=== PATIENT | female | born 1970 | race Caucasian/White ===

== ENCOUNTER 2023-03-15 10:28 | Outpatient (AMB) | payer BC, SELFPAY ==
[2023-03-15 11:27] VITALS: BP 100/70; PULSE 66; TEMP 36.8; O2SAT 96; BMI 27.3
--- NOTE | 2023-03-15 11:27 | AM.OFFWIN_ITS ---
Intake Vital Signs 03/15/23 11:27 Height 5 ft 5 in Weight 164 lb BMI 27.3 BP 100/70 Blood Pressure Location Lt brachial Position Sitting Pulse 66 Pulse Source Pulse Oximeter Temp 98.2 F Temp Source Oral Pulse Oximetry (%) 96 Intake Visit Reasons: EP, right ear blockage Intake Note: Pt is here today c/o Rt ear blockage over a month: also c/o Rt shoulder pain no injury noted Patient Tobacco Use Status: Never used Tobacco Allergies nitrofurantoin [From Macrobid] Adverse Reaction (Verified 03/15/23 11:38) Hives Do you need a note to return to daycare/school/sports/work: No HPI HPI Comments History of Present Illness Details 52-year-old female who presents for ear blockage and shoulder pain. Patient's ears been blocked for about a month now she has completed a course of Augmentin without much relief denies fevers or chills. In addition she complains of right shoulder pain primary with lateral raise. Does not recall any inciting injury. [facility] Social History Patient Tobacco Use Status: Never used Tobacco Review of Systems ENT Details: Ear fullness Musc Details: Right shoulder pain Physical Exam Vital Signs: Last Vital Signs Temp 98.2 F 03/15/23 11:27 Pulse 66 03/15/23 11:27 BP 100/70 03/15/23 11:27 Pulse Ox 96 03/15/23 11:27 BMI result Body Mass Index 27.3 Const General: healthy appearing, comfortable, no acute distress and alert Orientation/consciousness: patient oriented x3 Limitations: no limitations HEENT Other: Bilateral ear effusion Head: Yes normal to inspection Ears: hearing grossly normal bilaterally Resp Effort & Inspection: normal respiratory effort and able to speak in complete sentences Cardio Rate: regular rate Skin General skin exam: no rashes or lesions noted Neuro General: patient oriented x3 Extrem Other: Positive Johnson sign no tenderness to palpation General: Yes normal to inspection Assessment & Plan Assessment & Plan (1) Shoulder impingement syndrome: Code(s): M75.40 - Impingement syndrome of unspecified shoulder Qualifiers: Laterality: right Qualified Code(s): M75.41 - Impingement syndrome of right shoulder (2) Middle ear effusion: Code(s): H65.90 - Unspecified nonsuppurative otitis media, unspecified ear Qualifiers: Laterality: bilateral Qualified Code(s): H65.93 - Unspecified nonsuppurative otitis media, bilateral Plan VSs. Exam was unremarkable slight effusion of the year no evidence of infectious etiology. Support patient's shoulder positive Johnson test suggests impingement. Recommend heat shoulder exercises and meloxicam use. Medications: New meloxicam 7.5 mg PO DAILY 14 tabs 0RF Coding Level of Care Code Est Pt Level 3 (67231) Diagnoses Impingement syndrome of right shoulder M75.41 Laterality: right Fluid level behind tympanic membrane of both ears H65.93 Laterality: bilateral
== END 2023-03-15 12:13 | disposition home or self-care (01) ==
PROVIDERS: Visit Provider Physician Assistant
DX: M75.41 Impingement syndrome of right shoulder (principal); H65.93 Unspecified nonsuppurative otitis media, bilateral
CPT/HCPCS: 99213

== ENCOUNTER 2024-01-18 17:34 | Emergency (ER) | payer BC, SELFPAY ==
--- NOTE | ~2024-01-18 | XR_ITS ---
EXAMINATION: XR CHEST 2 VIEW CLINICAL INFORMATION: Cough COMPARISON: None TECHNIQUE: PA and lateral views of the chest obtained. FINDINGS: The lungs are clear. There are no pleural effusions. The cardiomediastinal silhouette is normal. XR/XR chest 2V IMPRESSION: No acute cardiopulmonary disease. Electronically signed by: Raoul Ramirez MD 01/18/2024 07:01 PM EDT
[2024-01-18 18:16] VITALS: BP 120/75; PULSE 118; RESP 18; TEMP 37.1; O2SAT 97; BMI 26.2
[2024-01-18] MEDS: Acetaminophen 325 MG TABLET 650 MG PO (18:32)
--- NOTE | 2024-01-18 18:34 | ED_ITS ---
HPI - General Adult General Chief complaint: Upper Respiratory Symptoms Stated complaint: URI/cough Time Seen by Provider: 01/18/24 22:01 Source: patient, RN notes reviewed and old records reviewed Mode of arrival: ambulatory Limitations: no limitations History of Present Illness ED Provider: Gavi AUGUSTE narrative: 53-year-old female presents with cough for few weeks. She says that on Dec, she began to have consistent productive cough. She says that the cough is associated with throat pain. At this time she did not have fever or chills, also had ear pain. She was found to have an ear infection, was treated with amoxicillin, of which she finished her prescription. Her cough and throat pain resolved at this time. She says that over the past few days the cough has come back, and has been resistant to treatment with Delsum and Robitussin. She says that today the cough has become so bad that she feels like her throat is closing during coughing fits. She says that the sensation is painful, however she has no shortness of breath during episodes. She endorses feeling chills, has no other systemic symptoms, has not tested for COVID. She says she received her flu vaccine this past Friday. Onset (ago): week(s) Location: chest Radiation: non-radiation Severity: mild Quality: dull Pain Consistency: constant Relieving factors: none Exacerbating factors: none Associated symptoms: cough Treatments prior to arrival: none Related Data Home Medications ?Medication ?Instructions ?Recorded ?Confirmed desonide 0.05 % topical cream appl topical 03/15/23 levonorgestrel 21 mcg/24 hr (up to intrauterine 03/15/23 8 years) 52 mg intrauterine device (Mirena) multivitamin 1 tab PO DAILY 03/15/23 spironolactone 50 mg tablet 50 mg PO BID 03/15/23 Previous Rx's ?Medication ?Instructions ?Recorded meloxicam 7.5 mg tablet 7.5 mg PO DAILY #14 tabs 03/15/23 benzonatate 200 mg capsule 200 mg PO TID PRN cough #20 caps 01/18/24 codeine 10 mg-guaifenesin 200 mg/5 10 ml PO Q4-6H PRN cough #473 mL 01/18/24 mL oral liquid Allergies Allergy/AdvReac Type Severity Reaction Status Date / Time nitrofurantoin AdvReac Hives Verified 01/18/24 18:19 [From Macrobid] Review of Systems Constitutional: Constitutional: Reports as per HPI, Denies chills, Denies fatigue, Denies fever(s) and Denies headache(s) ENT: Denies headache(s) Cardiovascular: Cardiovascular: Denies chest pain and Denies dyspnea Respiratory: Respiratory: Denies change in phlegm color, Denies chest congestion, Reports cough, Denies hemoptysis, Reports excessive phlegm pro duction, Reports pain with cough and Denies dyspnea Gastrointestinal: Gastrointestinal: Denies abdominal pain, Denies constipation and Denies vomiting Genitourinary: Genitourinary: Denies dysuria Neurologic: Denies headache(s) and Denies focal weakness Endocrine: Endocrine: Denies fatigue [facility] Social History Social History Patient Tobacco Use Status: Never used Tobacco Advance Directives: No Advance Directives Information Provided: No Physical Exam ED Vital Signs: Vital Signs - 24 hr 01/18/24 21:48 01/18/24 22:09 01/18/24 22:55 Temperature 98.7 F 99 F Pulse Rate 104 H 92 Respiratory Rate 20 20 Blood Pressure 128/78 119/79 Pulse Oximetry 97 95 97 Oxygen Delivery Method Room Air Room Air Room Air 01/18/24 23:05 Temperature 99 F Pulse Rate 92 Respiratory Rate 20 Blood Pressure 119/79 Pulse Oximetry 97 Oxygen Delivery Method Room Air BMI result Body Mass Index 26.2 Const General: healthy appearing, comfortable, no acute distress, alert and awake Nutritional Appearance: well nourished Orientation/consciousness: patient oriented x3 HENMT Head: Yes normocephalic and Yes atraumatic Ears: external ears normal and TM's normal bilaterally Mouth: moist mucous membranes and other (Erythematous posterior oropharynx, no tonsillar hypertrophy. ) Throat: Yes posterior oropharynx normal Eyes Eyelids: Yes eyelids normal Conjunctivae: conjunctivae normal Sclerae: sclerae normal Corneas: corneas normal Pupils: Equal, round and reactive pupils present EOM: EOMs intact bilaterally Neck Neck: Yes full ROM Resp Effort & Inspection: normal respiratory effort, able to speak in complete sentences, no audible wheezes and not labored Auscultation: clear to auscultation bilaterally Cardio Rate: regular rate Rhythm: regular rhythm GI Inspection: No distended Palpation (GI): Soft to palpation, not firm, nontender, no guarding and not rigid Auscultation: normoactive bowel sounds Skin General skin exam: no rashes or lesions noted and elasticity normal Neuro General: patient oriented x3 Cranial nerves: Yes CN's II-XII intact bilaterally, Yes Equal, round and reactive pupils present and Yes Bilaterally intact EOM present Cognition (Neuro): normal cognition Extrem Other: Moving all extremities well without any obvious deformities Course Course Course Narrative: RME; Done by RADHA Vázquez. 53-year-old female presents to ED for cough since December 27 with headache, body aches, chills and sore throat. 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 Patient denies any chest pain. Patient denies any recent long travel recent surgery. Negative for any lower extremity swelling or pitting edema calf tenderness. Lungs are clear. Medications Administered Discontinued Medications Generic Name Dose Route Start Last Admin Trade Name Freq PRN Reason Stop Dose Admin Acetaminophen 650 mg 01/18/24 18:21 01/18/24 18:32 Acetaminophen 325 Mg Tablet PO 01/18/24 18:22 650 mg ONCE ONE Administration Medical Decision Making Medical Decision Making MDM Narrative: 53-year-old female presents for evaluation of cough, congestion, sore throat. Vital signs are stable, she was recently treated for an ear infection with antibiotics and she reports her ear pain has resolved. Physical exam is reassuring, lungs are clear to auscultation, chest x-ray shows no evidence of infiltrate or pleural effusions. Viral swabs test positive for COVID-19. The patient be treated symptomatically. Differential Diagnosis Differential Diagnoses: The differential diagnosis associated with the presentat ion includes Cough COVID-19 Upper respiratory infection Pneumonia CHF Lab Data Labs: Lab Results 01/18/24 Range/Units 18:32 Influenza Type A (PCR) NEGATIVE (Negative) Influenza Type B (PCR) NEGATIVE (Negative) RSV RNA Qual (PCR) NEGATIVE (Negative) SARS-CoV-2 RNA (RT-PCR) POSITIVE A (Negative) S. pyogenes GrpA MARI Negative (Negative) Discharge Plan Discharge Clinical Impression: COVID-19 Patient Disposition: Home, Self-Care Instructions: COVID-19 (Coronavirus Disease 2019) (ED) Additional Instructions: You tested positive for COVID-19. You may use the Tessalon Perles during the day for cough. Use the guaifenesin with codeine for severe cough. This will make you drowsy, do not drink alcohol or drive after taking it. Follow-up with your primary doctor Prescriptions: New benzonatate 200 mg capsule 200 mg PO TID PRN (Reason: cough) Qty: 20 0RF codeine-guaifenesin 10-200 mg/5 mL liquid 10 ml PO Q4-6H PRN (Reason: cough) Qty: 473 0RF No Action spironolactone 50 mg tablet 50 mg PO BID Mirena 21 mcg/24 hours (8 yrs) 52 mg intrauterine device intrauterine multivitamin Tablet 1 tab PO DAILY desonide 0.05 % cream topical meloxicam 7.5 mg tablet 7.5 mg PO DAILY Qty: 14 0RF Stand Alone Forms: Work/School Release Interventions: ED Discharge Assessment Last Done: 01/18/24 23:05 Discharge Date/Time: 01/18/24 23:07 Print Language: Kenyan
[2024-01-18 18:47] LABS: IDNOW Serial# 08D9AD1C; Strep A Nucleic Acid Negative (Negative)
--- OUTSIDE RECORDS SUMMARY | 2024-01-18 19:05 | XMS_ITS | Continuity of Care Document ---
Author Organization [facility] [place] [facility] [place] Address [address] [place] [address]- Care Team Providers Care Naphthalene Still Operator Name Role Phone Jarret SENA, Mellisa Mcclendon Primary Care Physician [phone] Encounter [facility] Date(s): 04/12/22 - 05/12/22 [facility] Adult [address] [place] [address]- Allergies, Adverse Reactions, Alerts Substance Reaction Severity Status Macrobid Active Immunizations Given and Recorded Vaccine Date Status Refusal Reason influenza virus vaccine, inactivated 02/08/21 Devan rded influenza virus vaccine, inactivated 1 04/06/19 Gi richard influenza virus vaccine, inactivated 2 04/01/18 Gi richard influenza virus vaccine, inactivated 3 01/05/13 Gi richard influenza virus vaccine, inactivated 01/08/11 Give n SARS-CoV-2 (COVID-19) mRNA BNT-162b2 vac 07/12/20 Given SARS-CoV-2 (COVID-19) mRNA BNT-162b2 vac 06/21/20 Given Influenza Virus Vaccine (oldterm) 4 12/27/19 Recor ded Influenza Virus Vaccine (oldterm) 02/26/08 Given tetanus/diphtheria/pertussis, acel(Tdap) 11/20/15 Given FluLaval (oldterm) 01/17/10 Given tetanus-diphtheria toxoids (Td) 10/14/05 Given 1Result Comment: [facility]-[id number] 2Result Comment: [04/01/2018] [facility] [id number] 3Result Comment: [11/23/2013] Received at work 4Result Comment: influenza lot [id number] exp 10-04-2020 [facility] Medications Mirena 52 mg intrauteral device 1 each = 52 mg, Once, 0 Refills, Maintenance, 05/09/15 8:35:25 Start Date: 05/09/15 Status: Ordered spironolactone 50 mg oral tablet 1 tablet, By Mouth, 2 times a day, LABS REQUIRED FOR FURTHER REFILLS., # 180 tablet, 3 Refills, Maintenance, 01/04/22 6:54:00 EDT, [facility], 165.1, cm, 05/14/21 9:35:00 EST, Height Start Date: 01/04/22 Status: Ordered Westcort valerate 0.2% ointment 1 applicator, Topically, 2 times a day, # 45 Gm, 2 Refills, 05/28/16 10:01:26, 1 applicator Topically 2 times a day,x30 days Start Date: 05/28/16 Stop Date: 08/26/16 Status: Ordered Problem List Condition Confirmation Course Effective Dates Status Health St atus Informant Allergic rhinitis Confirmed Active Anxiety disorder Confirmed Active Insomnia Confirmed Active Migraine Confirmed Active Acne rosacea Confirmed Active Social History Social History Type Response Smoking Status Never smoker entered on: 11/20/15 Sex Patient Care team information Care Team Personnel Name: Jarret SENA, Mellisa Mcclendon Position: [facility] PCO Associate Professional Member Role: PCP Address: Address: [address] [place] [address]- Care Team Related Persons Name: ROCIO MESSER Address: home [address] [place] [id number]
--- OUTSIDE RECORDS SUMMARY | 2024-01-18 19:05 | XMS_ITS | Continuity of Care Document ---
Author Organization [facility] [place] [facility] Address [address] [place] [address]- Care Team Providers Care Stone Sandblaster Name Role Phone Jarret SENA, Mellisa Mcclendon Primary Care Physician Encounter [facility] Date(s): 05/14/21 - 06/13/21 [facility] Adult [address] [place] [address]- Attending Physician: AdmJennifer dillon Admitting Physician: AdmtrJennifer Referring Physician: Admtr, ArMaximus Allergies, Adverse Reactions, Alerts Substance Reaction Severity [...] toxoids (Td) 10/14/05 Given 1Result Comment: [facility]-[id number] 2Result Comment: [04/01/2018] [facility] [id number] 3Result Comment: [11/23/2013] Received at work 4Result Comment: influenza lot [id number] exp 10-04-2020 [facility] Medications Mirena 52 mg intrauteral device 1 each = 52 mg, Once, 0 Refills, Maintenance, 05/09/15 8:35:25 Start Date: 05/09/15 Status: Ordered spironolactone 50 mg oral tablet 1 tablet, By Mouth, 2 times a day, LABS REQUIRED FOR FURTHER REFILLS., # 180 tablet, 3 Refills, Maintenance, 10/30/20 9:15:00 EDT, [facility], 165.1, cm, 07/13/20 11:03:00 EDT, Height Start Date: 10/30/20 Status: Ordered Westcort valerate 0.2% ointment 1 applicator, Topically, 2 times a day, # 45 Gm, 2 Refills, 05/28/16 10:01:26, 1 applicator Topically 2 times a day,x30 days Start Date: 05/28/16 Stop Date: 08/26/16 Status: Ordered Problem List Condition Effective Dates Status Health Status Inform ant Allergic rhinitis(Confirmed) Active Anxiety disorder(Confirmed) Active Insomnia(Confirmed) Active Migraine(Confirmed) Active Acne rosacea(Confirmed) Active Social History Social History Type Response Smoking Status Never smoker entered on: 11/20/15 Sex
--- OUTSIDE RECORDS SUMMARY | 2024-01-18 19:05 | XMS_ITS | Continuity of Care Document ---
[facility] Address [address] [place] [address]- Care Team Providers Care Director Compliance Name Role Phone Jarret SENA, Mellisa Mcclendon Primary Care Physician [phone] Encounter [facility] Date(s): 02/10/23 - 03/12/23 [facility] [address] [place] [address]- Attending Physician: Yoan SENA, Deonna Hodgson Referring Physician: Mellisa Wheat NP Allergies, Adverse Reactions, Alerts Substance Reaction Severity Status Macrobid Active Immunizations Given and Recorded Vaccine Date Status Refusal Reason influenza virus vaccine, inactivated 12/18/22 Devan rded influenza virus vaccine, inactivated 01/01/22 Devan rded influenza virus vaccine, inactivated 02/08/21 Devan rded [...] tetanus-diphtheria toxoids (Td) 10/14/05 Given 1Result Comment: [facility]-[id number] 2Result Comment: [04/01/2018] [facility] [id number] 3Result Comment: [11/23/2013] Received at work 4Result Comment: influenza lot [id number] exp 10-04-2020 [facility] Medications Medrol Dosepak 4 mg oral tablet 1 pack/packet, By Mouth, Daily, for 6 days, as directed on package labeling, # 21 tablet, 5 Refills, Acute 03/18/23 11:43:00 EST, 02/10/23 11:43:00 EST, Tablet, [facility]/pharmacy #[id number], Partial fill upon patient request if the prescription is for a schedul... Start Date: 02/10/23 Stop Date: 03/18/23 Status: Ordered Mirena 52 mg intrauteral device 1 each = 52 mg, Once, 0 Refills, Maintenance, 05/09/15 8:35:25 Start Date: 05/09/15 Status: Ordered spironolactone 50 mg oral tablet 1 tablet, By Mouth, 2 times a day, # 180 tablet, 0 Refills, Maintenance, 03/03/23 12:23:00 EST, [facility]/pharmacy #[id number], 165.1, cm, 02/10/23 11:00:00 EST, Height Start Date: 03/03/23 Status: Ordered Westcort valerate 0.2% ointment 1 [...] Personnel Name: Jarret SENA, Mellisa Mcclendon Position: [facility] PCO Associate Professional Member Role: PCP Address: Address: [address] [place] [address]- Care Team Related Persons Name: ROCIO MESSER Address: home [address] [place] [address]
--- OUTSIDE RECORDS SUMMARY | 2024-01-18 19:05 | XMS_ITS | Continuity of Care Document ---
Author Organization [facility] [place] Address [address] [place] [address]- Care Team Providers Care Application Support Analyst Name Role Phone Jarret SENA, Mellisa Mcclendon Primary Care Physician Encounter [facility] Date(s): 11/04/22 - 12/04/22 [facility] Adult [address] [place] [address]- Allergies, Adverse Reactions, Alerts Substance Reaction Severity [...] 10/14/05 Given 1Result Comment: [facility]-[id number] 2Result Comment: [04/01/2018] [facility] [id number] 3Result Comment: [11/23/2013] Received at work 4Result Comment: influenza lot [id number] exp 10-04-2020 [facility] Medications Mirena 52 mg intrauteral device 1 each = 52 mg, Once, 0 Refills, Maintenance, 05/09/15 8:35:25 Start Date: 05/09/15 Status: Ordered predniSONE 20 mg oral tablet 2 tablet = 40 mg, By Mouth, Daily, # 6 tablet, 0 Refills, Maintenance, 09/22/22 15:17:00 EDT, [facility]/pharmacy #[id number], Partial fill upon patient request if the prescription is for a schedule II opioid drug., 165.1, cm, 09/18/22 10:32:00 EDT, Height Start Date: 09/22/22 Status: Ordered spironolactone 50 mg oral tablet 1 tablet, By Mouth, 2 times a day, LABS REQUIRED FOR FURTHER REFILLS., # 180 tablet, 0 Refills, Maintenance, 11/01/22 9:33:00 EDT, [facility], 165.1, cm, 09/18/22 10:32:00 EDT,Height Start Date: 11/01/22 Status: Ordered Westcort valerate 0.2% ointment 1 [...] Personnel Name: Jarret SENA, Mellisa Mcclendon Position: S PCO Associate Professional Member Role: PCP Address: Address: [address] [place] [address]- Care Team Related Persons Name: ROCIO MESSER Address: home [address] [place] [address]
--- OUTSIDE RECORDS SUMMARY | 2024-01-18 19:05 | XMS_ITS | Continuity of Care Document ---
Author Organization [facility] [place] Address [address] [place] [address]- Care Team Providers Care Academic Affairs Dean Name Role Phone Jarret SENA, Mellisa Mcclendon Primary Care Physician Encounter [facility] Date(s): 07/13/20 - 08/12/20 [facility] Adult [address] [place] [address]- Attending Physician: Admtr, Ar8 Admitting Physician: Admtr, Ar8 Referring Physician: Admtr, Ar8 Allergies, Adverse Reactions, Alerts Substance Reaction Severity Status Macrobid Active Immunizations Given and Recorded Vaccine Date Status Refusal Reason SARS-CoV-2 (COVID-19) mRNA BNT-162b2 vac 07/12/20 Given SARS-CoV-2 (COVID-19) mRNA BNT-162b2 vac 06/21/20 Given Influenza Virus Vaccine (oldterm) 1 12/27/19 Recor ded Influenza Virus Vaccine (oldterm) 02/26/08 Given influenza virus vaccine, inactivated 2 04/06/19 Gi richard influenza virus vaccine, inactivated 3 04/01/18 Gi richard influenza virus vaccine, inactivated 4 01/05/13 Gi richard influenza virus vaccine, inactivated 01/08/11 Give n tetanus/diphtheria/pertussis, acel(Tdap) 11/20/15 Given FluLaval (oldterm) 01/17/10 Given tetanus-diphtheria toxoids (Td) 10/14/05 Given 1Result Comment: influenza lot [id number] exp 10-04-2020 [facility] 2Result Comment: [facility]-[id number] 3Result Comment: [04/01/2018] [facility] [id number] 4Result Comment: [11/23/2013] Received at work Medications Mirena 52 mg intrauteral device 1 each = 52 mg, Once, 0 Refills, Maintenance, 05/09/15 8:35:25 Start Date: 05/09/15 Status: Ordered spironolactone 50 mg oral tablet 1 tablet, By Mouth, 2 times a day, LABS REQUIRED FOR FURTHER REFILLS., # 180 tablet, 3 Refills, Maintenance, 08/12/19 11:48:00 EDT, [facility], 165.1, cm, 04/06/19 10:09:00 EST, Height Start Date: 08/12/19 Status: Ordered Westcort valerate 0.2% ointment 1 [...]
--- OUTSIDE RECORDS SUMMARY | 2024-01-18 19:05 | XMS_ITS | Continuity of Care Document ---
Author Organization [facility] Address [address] [place] [address]- Care Team Providers Care Hired Help Name Role Phone Jarret SENA, Mellisa Mcclendon Primary Care Physician [phone] Encounter [facility] Date(s): 02/10/23 - 03/12/23 [facility] Adult [address] [place] [address]- Attending Physician: Admtr, Ar8 Admitting Physician: Admtr, [...] toxoids (Td) 10/14/05 Given 1Result Comment: [facility]-[id number] 2Result Comment: [04/01/2018] [facility] [id number] 3Result Comment: [11/23/2013] Received at work 4Result Comment: influenza lot [id number] exp 10-04-2020 [facility] Medications Medrol Dosepak 4 mg oral tablet 1 pack/packet, By Mouth, Daily, for 6 days, as directed on package labeling, # 21 tablet, 5 Refills, Acute 03/18/23 11:43:00 EST, 02/10/23 11:43:00 EST, Tablet, [facility]/pharmacy #[id number], Partial fill upon patient request if [...] tablet, 0 Refills, Maintenance, 03/03/23 12:23:00 EST, [facility]/pharmacy #[id number], 165.1, cm, 02/10/23 11:00:00 EST, Height [...] Status Never smoker entered on: 11/20/15 Sex MG Breast Views * Event Display: MM Mammogram Authored Date: [id number] Radiology * Latesha Eubanks: PERFORM Event Display: Radiology Results Scanned Authored Date: [id number] Patient Care team information Care Team Personnel Name: Jarret SENA, Mellisa Mcclendon Position: S PCO Associate Professional Member Role: PCP Address: Address: [address] [place] [address]- Care Team Related Persons Name: ROCIO MESSER Address: home [address] [place] [address]
--- OUTSIDE RECORDS SUMMARY | 2024-01-18 19:05 | XMS_ITS | Continuity of Care Document ---
Author Organization [facility] Chapo lt Address [address] [place] [address]- Care Team Providers Care Structural Steel Engineer Name Role Phone Jarret SENA, Mellisa Mcclendon Primary Care Physician En[facility] [place] [facility] R [id number] Date(s): 04/11/22 - 04/18/22 [facility] Adult [address] [place] [address]- Encounter Diagnosis Posterior left knee pain(Discharge Diagnosis) - 04/11/22 Attending Physician: Mellisa Wheat NP Allergies, Adverse Reactions, [...] tetanus-diphtheria toxoids (Td) 10/14/05 Given 1Result Comment: [facility]-[id number] 2Result Comment: [04/01/2018] [facility] [id number] 3Result Comment: [11/23/2013] Received at work 4Result Comment: influenza lot [id number] exp 10-04-2020 [facility] Medications Mirena 52 mg intrauteral [...] Migraine Confirmed Active Acne rosacea Confirmed Active Diagnosis Diagnosis Type Effective Dates Health Status Cl inical Service Informant Posterior left knee pain Discharge Diagnosis 04/11/22 Vital Signs Most recent to oldest [Reference Range]: 1 Height 165.10 cm (04/11/22 9:22 AM) Weight 73.3 kg (04/11/22 9:22 AM) Oxygen Saturation [94-100 %] 100 % (04/11/22 9:22 AM) Pulse Rate [55-90 bpm] 80 bpm (04/11/22 9:22 AM) Body Mass Index [18.5-24.99 kg/m2] 26.89 kg/m2 *H* (04/11/22 9:22 AM) Blood Pressure [90-138/55-84 mm Hg] 116/ 61mm Hg (04/11/22 9:22 AM) Blood pressure sites Arm, left (04/11/22 9:22 AM) Social History Social History Type Response Smoking Status Never smoker entered on: 11/20/15 Sex Note * Caprice Patrick: PERFORM, SIGN, VERIFY Event Display: Patient Education/Instruction Authored Date: [id number] [facility] *BMP So Keegan Adlt Clinical Summary Name MARIE NG Age 51 Years 1970 PCP Mellisa Wheat NP [id number] Visit Date 04/11/2022 09:17:00 Additional Instructions: Scheduled Appointments?? Future Appointments ?[facility] ?[address]??[place],??[place],??[address] ?Phone:??[phone]?Fax:??-- ?Appt. Date:??04/11/2022?12:45 PM ?Scheduled Provider:??[facility] 4 Follow-Up Instructions ?? With: Address: When: As Needed 04/11/2022 12:00 AM With: Address: When: Jarret SENA, Mellisa Mcclendon [address] [place], [place] [phone] 04/11/2022 12:00 AM Diagnosis Pain in left knee Medications: Please continue your medications until treatment is completed or stopped by your provider. Discuss any questions related to medications with your provider. Medications to Continue with No Changes These medications were not printed or sent to your pharmacy Hydrocortisone Topical (Westcort valerate 0.2% ointment) 1 applicator Topically twice a day for 30 Days. Refills: 2. Next Dose: Levonorgestrel (Mirena 52 mg intrauteral device) 1 Each once. Next Dose: Spironolactone (spironolactone 50 mg oral tablet) 1 tab(s) Oral twice a day. LABS REQUIRED FOR FURTHER REFILLS.. Refills: 3. Next Dose: Allergy Info:?? Macrobid Medications Given This Visit Future Orders ?Varicella Zoster IgG Ab? Order Date:04/11/22?- Complete on or after?04/11/22 ?US Doppler Ext Lower Venous Left? Order Date:04/11/22?- Complete on or after?04/11/22 Vital Signs Height 165.10 cm Weight 73.3 kg BMI 26.89 kg/m2 Blood Pressure 116 mm Hg/61 mm Hg Temperature Pulse Rate 80 bpm Respiratory Rate 02 Sat Mode of Delivery 100 %/ You can now view a summary of your hospital visit from the comfort of your home through a free online portal called [employer]ca[employer]. M[employer]cao is a website that allows you to securely view your medical information including discharge summary, medications and follow-up visits. ??You can alsosend a secure electronic message to your doctor???s office to request appointments, renew medications or just ask a question. You can enroll at [email or web address] or register during your next office visit. Disclaimer:?? The information provided is of a general nature and is intended to be used in conjunction with the recommendations and advice of your health care practitioner. ??Every effort has been made to ensure that the information provided is accurate and complete at the time it is provided to you however, as your needs change, or, as new ??information becomes available, different or additional instructions may be required. If you have questions, please consult with your primary care provider or pharmacist, as appropriate. ??This information is not intended to serve as substitution for assessment and evaluation by a qualified health care provider. If you do not have a primary care provider, you may find a [facility] provider by calling [facility] at [phone]. For information about the plan of care including goals and instructions for your diagnosis, please see the patient education orders section of this document. Patient Education Materials?? The content of this educational material or handout may have been modified, supplemented, or adapted from its original content and format to support your individualized medical care. Patient Care team information Care Team Personnel Name: Jarret SENA, Mellisa Mcclendon Position: [facility] PCO Associate Professional Member Role: PCP Address: Address: [address] [place] [address]- Care Team Related Persons Name: ROCIO MESSER Address: home [address] [place] [address]
--- OUTSIDE RECORDS SUMMARY | 2024-01-18 19:05 | XMS_ITS | Continuity of Care Document ---
Author Organization [facility] Chapo lt Address [address] [place] [address]- Care Team Providers Care Refinish Technician Name Role Phone Jarret SENA, Mellisa Mcclendon Primary Care Physician [phone] Encounter [facility] [place] Date(s): 04/06/19 - 04/13/19 [facility] Adult [address] [place] [address]- [facility] Encounter Diagnosis Anxiety disorder(Discharge Diagnosis) - 04/06/19 Annual physical exam(Discharge Diagnosis) - 04/06/19 Migraine(Discharge Diagnosis) - 04/06/19 Attending Physician: Mellisa Wheat NP Allergies, Adverse Reactions, Alerts Substance Reaction Severity Status Macrobid Active Immunizations Given and Recorded Vaccine Date Status Refusal Reason influenza virus vaccine, inactivated 1 04/06/19 Gi richard influenza virus vaccine, inactivated 2 04/01/18 Gi richard influenza virus vaccine, inactivated 3 01/05/13 Gi richard influenza virus vaccine, inactivated 01/08/11 Give n tetanus/diphtheria/pertussis, acel(Tdap) 11/20/15 Given FluLaval (oldterm) 01/17/10 Given Influenza Virus Vaccine (oldterm) 02/26/08 Given tetanus-diphtheria toxoids (Td) 10/14/05 Given 1Result Comment: [facility]-[id number] 2Result Comment: [04/01/2018] [facility] [id number] 3Result Comment: [11/23/2013] Received at work Medications hydrocortisone topical valerate 0.2% ointment 1 application, Topically, 2 times a day, for 30 days, apply in a thin film to the affected skin andrub in gently and completely, # 60 Gm, 2 Refills, Acute 08/02/19 15:33:21 EDT, 05/04/19 15:33:21 EST, Ointment, 1 application Topically 2 times a day,x... Start Date: 05/04/19 Stop Date: 08/02/19 Status: Ordered Mirena 52 mg intrauteral device 1 each = 52 mg, Once, 0 Refills, Maintenance, 05/09/15 8:35:25 Start Date: 05/09/15 Status: Ordered spironolactone 50 mg oral tablet 1 tablet = 50 mg, By Mouth, 2 times a day, # 180 tablet, 3 Refills, Maintenance, 05/18/18 16:27:45 EST, Tablet Start Date: 05/18/18 Status: Ordered Westcort valerate 0.2% ointment 1 applicator, Topically, 2 times a day, # 45 Gm, 2 Refills, 05/28/16 10:01:26, 1 applicator Topically 2 times a day,x30 days Start Date: 05/28/16 Stop Date: 08/26/16 Status: Ordered Problem List Condition Effective Dates Status Health Status Inform ant Allergic rhinitis(Confirmed) Active Anxiety disorder(Confirmed) Active Insomnia(Confirmed) Active Migraine(Confirmed) Active Acne rosacea(Confirmed) Active Diagnosis Diagnosis Type Effective Dates Health Status Cl inical Service Informant Anxiety disorder Discharge Diagnosis 04/06/19 Annual physical exam Discharge Diagnosis 04/06/19 Migraine Discharge Diagnosis 04/06/19 Vital Signs Most recent to oldest [Reference Range]: 1 Height 165.10 cm (04/06/19 10:09 AM) Weight 74.5 kg (04/06/19 10:09 AM) Oxygen Saturation [94-100 %] 99 % (04/06/19 10:09 AM) Pulse Rate [55-90 bpm] 67 bpm (04/06/19 10:09 AM) Body Mass Index [18.5-24.99] 27.33 *H* (04/06/19 10:09 AM) Blood Pressure [90-138/55-84 mm Hg] 104/ 68mm Hg (04/06/19 10:09 AM) Respiratory Rate [16-30 br/min] 15 br/mi n *L* (04/06/19 10:09 AM) Temperature [96.8-100.4 DegF] 97.3 DegF (04/06/19 10:09 AM) Mode of Delivery (Oxygen) Room air (04/06/19 10:09 AM) Blood pressure sites Arm, left (04/06/19 10:09 AM) Temperature Route Oral (04/06/19 10:09 AM) Weight Obtained Via Standing scale (04/06/19 10:09 AM) Social History Social History Type Response Smoking Status Never smoker entered on: 11/20/15 Sex
--- OUTSIDE RECORDS SUMMARY | 2024-01-18 19:05 | XMS_ITS | Continuity of Care Document ---
Author Organization [facility] Chapo lt Address [address] [place] [address]- Care Team Providers Care Felt Finisher Name Role Phone Jarret SENA, Mellisa Mcclendon Primary Care Physician Encounter [facility] [place] Date(s): 02/28/23 - 03/30/23 [facility] Adult [address] [place] [address]- Allergies, Adverse Reactions, Alerts Substance Reaction Severity [...] tetanus-diphtheria toxoids (Td) 10/14/05 Given 1Result Comment: [facility]-[id number] 2Result Comment: [04/01/2018] [facility] [id number] 3Result Comment: [11/23/2013] Received at work 4Result Comment: influenza lot [id number] exp 10-04-2020 [facility] Medications Mirena 52 mg intrauteral device 1 each = 52 mg, Once, 0 Refills, Maintenance, 05/09/15 8:35:25 Start Date: 05/09/15 Status: Ordered spironolactone 50 mg oral tablet 1 tablet, By Mouth, 2 times a day, # 180 tablet, 0 Refills, Maintenance, 03/03/23 12:23:00 EST, [id number], 165.1, cm, 02/10/23 11:00:00 EST, Height [...] Personnel Name: Jarret SENA, Mellisa Mcclendon Position: [facility] PCO Associate Professional Member Role: PCP Address: Address: [address] [place] [address]- Care Team Related Persons Name: ROCIO MESSER Address: home [address] [place] [address]
--- OUTSIDE RECORDS SUMMARY | 2024-01-18 19:06 | XMS_ITS | Continuity of Care Document ---
Author Organization [facility] Chapo lt Address [address] [place] [address]- Care Team Providers Care Button Machine Operator Name Role Phone Jarret SENA, Mellisa Mcclendon Primary Care Physician Encounter [facility] [place] Date(s): 04/11/22 - 05/11/22 [facility] Adult [address] [place] [address]- Attending Physician: Admtr, Ar8 Admitting Physician: Admtr, [...] tetanus-diphtheria toxoids (Td) 10/14/05 Given 1Result Comment: [facility]-[id number] 2Result Comment: [04/01/2018] [facility] [id number] 3Result Comment: [11/23/2013] Received at work 4Result Comment: influenza lot [id number] exp 10-04-2020 [facility] Medications Mirena 52 mg [...] smoker entered on: 11/20/15 Sex Note * Event Display: MM Mammogram Authored Date: [id number] * Latesha Eubanks: PERFORM Event Display: Radiology Results Scanned Authored Date: [id number] Patient Care team information Care Team Personnel Name: Jarret SENA, Mellisa Mcclendon Position: S PCO Associate Professional Member Role: PCP Address: Address: [address] [place] [address]- Care Team Related Persons Name: ROCIO MESSER Address: home [address] [place] [address]
--- OUTSIDE RECORDS SUMMARY | 2024-01-18 19:06 | XMS_ITS | Continuity of Care Document ---
Author Organization [facility] Chapo lt Address [address] [place] [address]- Care Team Providers Care Commission Associate Name Role Phone Jarret SENA, Mellisa Mcclendon Primary Care Physician [phone] Encounter [facility] [place] Date(s): 07/13/20 - 07/20/20 [facility] Adult [address] [place] [address]- Encounter Diagnosis Finger mass, right(Discharge Diagnosis) - 07/13/20 Attending Physician: Kodak GHOTRA, Joseph Landry Referring Physician: Mellisa Wheat NP Allergies, Adverse [...] (Td) 10/14/05 Given 1Result Comment: influenza lot [id number] exp 10-04-2020 [facility] 2Result Comment: [facility]-[id number] 3Result Comment: [04/01/2018] [facility] [id number] 4Result Comment: [11/23/2013] Received at work Medications [...] Dates Health Status Cl inical Service Informant Finger mass, right Discharge Diagnosis 07/13/20 Vital Signs Most recent to oldest [Reference Range]: 1 Height 165.10 cm (07/13/20 11:03 AM) Weight 74.4 kg (07/13/20 11:03 AM) Oxygen Saturation [94-100 %] 97 % (07/13/20 11:03 AM) Pulse Rate [55-90 bpm] 66 bpm (07/13/20 11:03 AM) Body Mass Index [18.5-24.99] 27.29 *H* (07/13/20 11:03 AM) Blood Pressure [90-138/55-84 mm Hg] 119/ 68mm Hg (07/13/20 11:03 AM) Temperature [96.8-100.4 DegF] 98.2 DegF (07/13/20 11:03 AM) Blood pressure sites Arm, right (07/13/20 11:03 AM) Temperature Route Oral (07/13/20 11:03 AM) Weight Obtained Via Standing scale (07/13/20 11:03 AM) Social History Social History Type Response Smoking Status Never smoker entered on: 11/20/15 Sex
--- OUTSIDE RECORDS SUMMARY | 2024-01-18 19:06 | XMS_ITS | Continuity of Care Document ---
Author Organization [facility] Chapo lt Address [address] [place] [address]- Care Team Providers Care Executive Receptionist Name Role Phone Jarret SENA, Mellisa Mcclendon Primary Care Physician [place] [facility] [place] - 05/12/22 [facility] Adult [address] [place] [address]- Allergies, Adverse Reactions, Alerts Substance Reaction Severity [...] tetanus-diphtheria toxoids (Td) 10/14/05 Given 1Result Comment: [facility]-[id number] 2Result Comment: [04/01/2018] [facility] [id number] 3Result Comment: [11/23/2013] Received at work 4Result Comment: influenza lot [id number] exp 10-04-2020 [facility] Medications Mirena 52 mg intrauteral device [...] Personnel Name: Jarret SENA, Mellisa Mcclendon Position: [facility] PCO Associate Professional Member Role: PCP Address: Address: [address] [place] [address]- Care Team Related Persons Name: ROCIO MESSER Address: home [address] [place] [address]
--- OUTSIDE RECORDS SUMMARY | 2024-01-18 19:06 | XMS_ITS | Continuity of Care Document ---
Author Organization [facility] Chapo lt Address [address] [place] [address]- Care Team Providers Care Retail Team Leader Name Role Phone Jarret SENA, Mellisa Mcclendon Primary Care Physician [place] [facility] [place] 09/18/22 - 10/18/22 [facility] Adult [address] [place] [address]- Attending Physician: Admtr, Ar8 Admitting Physician: Admtr, [...] tetanus-diphtheria toxoids (Td) 10/14/05 Given 1Result Comment: [facility]-[id number] 2Result Comment: [04/01/2018] [facility] [address]-30 3Result Comment: [11/23/2013] Received at work 4Result Comment: influenza lot [id number] exp 10-04-2020 [facility] Medications Mirena 52 mg intrauteral device 1 each = 52 mg, Once, 0 Refills, Maintenance, 05/09/15 8:35:25 Start Date: 05/09/15 Status: Ordered predniSONE 20 mg oral tablet 2 tablet = 40 mg, By Mouth, Daily, # 6 tablet, 0 Refills, Maintenance, 09/22/22 15:17:00 EDT, [id number], Partial fill upon patient request if [...] * Event Display: MM Mammogram Authored Date: Radiology * Latesha Eubanks: PERFORM Event Display: Radiology Results Scanned Authored Date: [id number] Patient Care team information Care Team Personnel Name: Jarret SENA, Mellisa Mcclendon Position: S PCO Associate Professional Member Role: PCP Address: Address: [address] [place] [address]- Care Team Related Persons Name: ROCIO MESSER Address: home [address] [place] [address]
--- OUTSIDE RECORDS SUMMARY | 2024-01-18 19:06 | XMS_ITS | Continuity of Care Document ---
Author Organization [facility] Chapo lt Address [address] [place] [address]- Care Team Providers Care Multi Line Claims Adjuster Name Role Phone Jarret SENA, Mellisa Mcclendon Primary Care Physician En[facility] [place] Date(s): 07/30/20 - 08/29/20 [facility] Adult [address] [place] [address]- Allergies, Adverse Reactions, Alerts Substance Reaction Severity [...] (Td) 10/14/05 Given 1Result Comment: influenza lot [id number] exp 10-04-2020 [facility] 2Result Comment: [facility]-[id number] 3Result Comment: [04/01/2018] [facility] [id number] 4Result Comment: [11/23/2013] Received at work Medications [...]
--- OUTSIDE RECORDS SUMMARY | 2024-01-18 19:06 | XMS_ITS | Continuity of Care Document ---
Author Organization [facility] Address [address] [place] [address]- Care Team Providers Care Cutter Finisher Name Role Phone Jarret SENA, Mellisa Mcclendon Primary Care Physician Encounter [facility] Date(s): 02/10/23 - 03/12/23 [facility] [address] [place] [address]- Attending Physician: Jennifer Fajardo Admitting Physician: AdmtrJennifer Referring Physician: Admtr, Ar8 Allergies, Adverse Reactions, [...] tetanus-diphtheria toxoids (Td) 10/14/05 Given 1Result Comment: [facility]-[id number] 2Result Comment: [04/01/2018] [facility] [id number] 3Result Comment: [11/23/2013] Received at work 4Result Comment: influenza lot [id number] exp 10-04-2020 [facility] Medications Medrol Dosepak 4 mg oral tablet 1 pack/packet, By Mouth, Daily, for 6 days, as directed on package labeling, # 21 tablet, 5 Refills, Acute 03/18/23 11:43:00 EST, 02/10/23 11:43:00 EST, Tablet, [id number], Partial fill upon patient request [...] tablet, 0 Refills, Maintenance, 03/03/23 12:23:00 EST, [id number], 165.1, cm, 02/10/23 11:00:00 EST, Height [...] Associate Professional Member Role: PCP Address: Address: [address] [place] [address]- Care Team Related Persons Name: ROCIO MESSER Address: home [address] [place] [address]
--- OUTSIDE RECORDS SUMMARY | 2024-01-18 19:06 | XMS_ITS | Continuity of Care Document ---
Author Organization [facility] Chapo lt Address [address] [place] [address]- Care Team Providers Care Meat Washer Name Role Phone Jarret SENA, Mellisa Mcclendon Primary Care Physician [phone] En[place] [facility] [facility] [place] Date(s): 02/28/23 - 03/30/23 [facility] Adult [address] [place] [address]- Allergies, Adverse Reactions, Alerts Substance Reaction Severity [...] tetanus-diphtheria toxoids (Td) 10/14/05 Given 1Result Comment: [facility]-[id number] 2Result Comment: [04/01/2018] [facility] [id number] 3Result Comment: [11/23/2013] Received at work 4Result Comment: influenza lot [id number] exp 10-04-2020 [facility] Medications Mirena 52 mg intrauteral [...] Jarret SENA, Mellisa Mcclendon Position: [facility] PCO Associate Professional Member Role: PCP Address: Address: [address] [place] [address]- Care Team Related Persons Name: ROCIO MESSER Address: home [address] [place] [address]
--- OUTSIDE RECORDS SUMMARY | 2024-01-18 19:06 | XMS_ITS | Continuity of Care Document ---
Author Organization [facility] Address [address] [place] [address]- Care Team Providers Care Electronic Typesetting Machine Operator Name Role Phone Jarret SENA, Mellisa Mcclendon Primary Care Physician Encounter [facility] [place] Date(s): 09/30/22 - 12/02/[address] [address] Encounter Diagnosis Cervicalgia(Final) - Discharge Disposition: A-D/C Home Attending Physician: Yennifer Baker NP Admitting Physician: Yennifer Baker NP Referring Physician: Yennifer Baker NP Allergies, Adverse Reactions, Alerts Substance Reaction [...] tetanus-diphtheria toxoids (Td) 10/14/05 Given 1Result Comment: [facility]-[id number] 2Result Comment: [04/01/2018] [facility] [id number] 3Result Comment: [11/23/2013] Received at work 4Result Comment: influenza lot [id number] exp 10-04-2020 [facility] Medications Mirena 52 mg intrauteral device 1 each = 52 mg, Once, 0 Refills, Maintenance, 05/09/15 8:35:25 Start Date: 05/09/15 Status: Ordered predniSONE 20 mg oral tablet 2 tablet = 40 mg, By Mouth, Daily, # 6 tablet, 0 Refills, Maintenance, 09/22/22 15:17:00 EDT, [facility] #[id number], Partial fill upon patient request if the prescription is for a schedule II opioid drug., 165.1, cm, 09/18/22 10:32:00 EDT, Height Start Date: 09/22/22 Status: Ordered spironolactone 50 mg oral tablet 1 tablet, By Mouth, 2 times a day, LABS REQUIRED FOR FURTHER REFILLS., # 180 tablet, 0 Refills, Maintenance, 11/01/22 9:33:00 EDT, [facility], 165.1, cm, 09/18/22 10:32:00 EDT,Height Start [...] Associate Professional Member Role: PCP Address: Address: [address] [place] [address]- Care Team Related Persons Name: ROCIO MESSER Address: home [address] [place] [address]
--- OUTSIDE RECORDS SUMMARY | 2024-01-18 19:06 | XMS_ITS | Continuity of Care Document ---
Author Organization [facility] Chap[facility] Address [address] [place] [address]- Care Team Providers Care Short Goods Drier Name Role Phone Jarret SENA, Mellisa Mcclendon Primary Care Physician Encounter [facility] [place] Date(s): 05/14/21 - 05/21/21 [facility] Adult [address] [place] [address]- Encounter Diagnosis Abscess(Discharge Diagnosis) - 05/14/21 Attending Physician: Not on Staff, Attending MD Referring Physician: Jarret SENA, Mellisa Mcclendon Allergies, Adverse Reactions, Alerts Substance Reaction Severity Status Macrobid Active Immunizations Given and Recorded Vaccine Date Status Refusal Reason influenza virus vaccine, inactivated 02/08/21 Devna rded influenza virus vaccine, inactivated 1 04/06/19 [...] tetanus-diphtheria toxoids (Td) 10/14/05 Given 1Result Comment: [id number] 2Result Comment: [04/01/2018] [facility] [id number] 3Result Comment: [11/23/2013] Received at work 4Result Comment: influenza lot [id number] exp 10-04-2020 [facility] Medications Mirena 52 mg intrauteral device [...] Diagnosis Diagnosis Type Effective Dates Health Status Clini bushra Service Informant Abscess Discharge Diagnosis 05/14/21 Vital Signs Most recent to oldest [Reference Range]: 1 Height 165.10 cm (05/14/21 9:35 AM) Weight 74.0 kg (05/14/21 9:35 AM) Oxygen Saturation [94-100 %] 99 % (05/14/21 9:35 AM) Pulse Rate [55-90 bpm] 92 bpm *H* (05/14/21 9:35 AM) Body Mass Index [18.5-24.99] 27.15 *H* (05/14/21 9:35 AM) Blood Pressure [90-138/55-84 mm Hg] 119/ 73mm Hg (05/14/21 9:35 AM) Temperature [96.8-100.4 DegF] 97.6 DegF (05/14/21 9:35 AM) Blood pressure sites Arm, right (05/14/21 9:35 AM) Temperature Route Oral (05/14/21 9:35 AM) Weight Obtained Via Standing scale (05/14/21 9:35 AM) Social History Social History Type Response Smoking Status Never smoker entered on: 11/20/15 Sex
--- OUTSIDE RECORDS SUMMARY | 2024-01-18 19:06 | XMS_ITS | Continuity of Care Document ---
Author Organization [facility] Keegan Chapo lt Address [address] [place] [address]- Care Team Providers Care Shop Welder Name Role Phone Jarret SENA, Mellisa Mcclendon Primary Care Physician [phone] Encounter [facility] Date(s): 09/18/22 - 09/25/22 [facility] [place] Adult [address] [place] [address]- Attending Physician: Mellisa Wheat NP Allergies, Adverse [...] tetanus-diphtheria toxoids (Td) 10/14/05 Given 1Result Comment: [facility]-[id number] 2Result Comment: [04/01/2018] [facility] [id number] 3Result Comment: [11/23/2013] Received at work 4Result Comment: influenza lot [id number] exp 10-04-2020 [facility] pharmacy Medications Mirena 52 mg intrauteral device 1 each = 52 mg, Once, 0 Refills, Maintenance, 05/09/15 8:35:25 Start Date: 05/09/15 Status: Ordered predniSONE 20 mg oral tablet 2 tablet = 40 mg, By Mouth, Daily, # 6 tablet, 0 Refills, Maintenance, 09/22/22 15:17:00 EDT, [facility]/pharmacy #[id number], Partial fill upon patient request if the [...] Migraine Confirmed Active Acne rosacea Confirmed Active Vital Signs Most recent to oldest [Reference Range]: 1 Height 165.10 cm (09/18/22 10:32 AM) Weight 72.8 kg (09/18/22 10:32 AM) Oxygen Saturation [94-100 %] 98 % (09/18/22 10:32 AM) Pulse Rate [55-90 bpm] 86 bpm (09/18/22 10:32 AM) Body Mass Index [18.5-24.99 kg/m2] 26.71 kg/m2 *H* (09/18/22 10:32 AM) Blood Pressure [90-138/55-84 mm Hg] 118/ 74mm Hg (09/18/22 10:32 AM) Temperature [96.8-100.4 DegF] 98.2 DegF (09/18/22 10:32 AM) Blood pressure sites Arm, right (6/14/23 10:32 AM) Temperature Route Temporal (09/18/22 10:32 AM) Weight Obtained Via Standing scale (09/18/22 10:32 AM) Social History Social History Type Response Smoking Status Never smoker entered on: 11/20/15 Sex Note * Kathy Benito: PERFORM, SIGN, VERIFY Event Display: Patient Education/Instruction Authored Date: [id number] [facility] *BMP So Keegan Gauthier Clinical Summary Name MARIE NG Age 52 Years 1970 PCP Jarret SENA, Mellisa Mcclendon PCP Visit Date 09/18/2022 10:28:00 Additional Instructions: Scheduled Appointments?? Future Appointments ?No Future Appointments Scheduled Follow-Up Instructions ?? Diagnosis Medications: Please continue your medications until treatment is completed or stopped by your provider. Discuss any questions related to medications with your provider. New Medications [id number], [address] [place] [id number], [phone] PredniSONE (predniSONE 20 mg oral tablet) 2 tab(s) Oral Daily for 5 Days. Refills: 0. Next Dose: Medications to Continue with No Changes These [...] Macrobid Medications Given This Visit Future Orders ?No future orders Vital Signs Height 165.10 cm Weight 72.8 kg BMI 26.71 kg/m2 Blood Pressure 118 mm Hg/74 mm Hg Temperature 98.2 DegF Pulse Rate 86 bpm Respiratory Rate 02 Sat Mode of Delivery 98 %/ You can now view a summary of your hospital visit from the comfort of your home through a free online portal called [employer]aters. [employer] is a website that allows you to securely view your medical information including discharge summary, medications and follow-up visits. ??You can alsosend a secure electronic message to your doctor???s office to request appointments, renew medications or just ask a question. You can enroll at [email or web address] or register during your next office visit. [...] primary care provider, you may find a [facility] provider by calling [facility] [employer] Link at [phone]. For information about the plan of care [...] Associate Professional Member Role: PCP Address: Address: [address] [place] [address]- Care Team Related Persons Name: ROCIO MESSER Address: home [address] [place] [address]
--- OUTSIDE RECORDS SUMMARY | 2024-01-18 19:06 | XMS_ITS | Continuity of Care Document ---
Author Organization [facility] Address [address] [place] [address]- Care Team Providers Care Fire Control Technician G Name Role Phone Jarret SENA, Mellisa Mcclendon Primary Care Physician [phone] Encounter 04/02/22 - 04/09/22 [facility] [address], [address] [place] [address]- Attending Physician: Jarret SENA, Mellisa Mcclendon Admitting Physician: Jarret SENA, Mellisa Mcclendon Referring Physician: Jarret SENA, Mellisa Mcclendon Allergies, [...] 10/14/05 Given 1Result Comment: [facility]-[id number] 2Result Comment: [04/01/2018] [facility] [id number] 3Result Comment: [11/23/2013] Received at work 4Result Comment: influenza lot [id number] exp 10-04-2020 [facility] pharmacy Medications Mirena 52 mg intrauteral [...] Migraine Confirmed Active Acne rosacea Confirmed Active Results Radiology Reports * Exam Date Time Procedure Performing Provider Status 04/02/22 1:37 PM MM Digital Mammo Screening Mitch Moore; Mike (Verified) Notes: (MM Digital Mammo Screening) Reason For Exam: Z12.31 ROUTINE SCREENING RESULT: MM Digital Mammo Screening PROCEDURE: MM Digital Mammo Screening INDICATION: Screening. No known palpable abnormalities. COMPARISON: 10/15/2018 TECHNIQUE: Full-field digital CC and MLO views of both breasts were obtained. In addition, 3D tomosynthesis images of both breasts were acquired. Computer-aided detection (CAD) was utilized in the interpretation of this study. DENSITY: The breast tissue contains scattered areas of fibroglandular density. FINDINGS: No suspicious masses, suspicious microcalcifications, or areas of architectural distortion are seen in either breast to suggest malignancy. IMPRESSION: No mammographic evidence of malignancy. RECOMMENDATION: Annual mammographic screening. BI-RADS: BI-RADS 1-Negative Lay letter mailed to patient WSN: [id number] Ordering Physician: Mellisa Wheat Dictated By: Luis F Gomes MD Dictated Date/Time: 04/02/22 4:36 pm Reviewed By: Luis F Gomes MD Signed By: Luis F Gomes MD Signed Date/Time: 04/02/22 4:36 pm Transcribed By: ELINA Rating Examiner Date/Time: 04/02/22 4:34 pm Birads: Social History Social History Type Response Smoking Status Never smoker entered on: 11/20/15 Sex MG Breast Screening * BHSPowerscribe , CIS S: TRANSCRIBE Luis F Gomes MD: VERIFY Event Display: Result: Authored Date: [id number] PROCEDURE: MM Digital Mammo Screening INDICATION: Screening. No known palpable abnormalities. COMPARISON: 10/15/2018 TECHNIQUE: Full-field digital CC and MLO views of both breasts were obtained. In addition, 3D tomosynthesis images of both breasts were acquired. Computer-aided detection (CAD) was utilized in the interpretation of this study. DENSITY: The breast tissue contains scattered areas of fibroglandular density. FINDINGS: No suspicious masses, suspicious microcalcifications, or areas of architectural distortion are seen in either breast to suggest malignancy. IMPRESSION: No mammographic evidence of malignancy. RECOMMENDATION: Annual mammographic screening. BI-RADS: BI-RADS 1-Negative Lay letter mailed to patient WSN: [id number] Ordering Physician: Mellisa Wheat Dictated By: Luis F Gomes MD Dictated Date/Time: 04/02/22 4:36 pm Reviewed By: Luis F Gomes MD Signed By: Luis F Gomes MD Signed Date/Time: 04/02/22 4:36 pm Transcribed By: ELINA Rating Examiner Date/Time: 04/02/22 4:34 pm Birads: Patient Care team information Care Team Personnel Name: Mellisa Wheat NP Position: [facility] PCO Associate Professional Member Role: PCP Address: Address: [address] [place] [address]- Care Team Related Persons Name: ROCIO MESSER Address: home [address] [place] [address]
--- OUTSIDE RECORDS SUMMARY | 2024-01-18 19:06 | XMS_ITS | Continuity of Care Document ---
Author Organization [facility] Address [address] [facility] [facility], [address] [place] [address]- Care Team Providers Care Acute Care Certified Nursing Assistant Name Role Phone Jarret SENA, Mellisa Mcclendon Primary Care Physician Encounter 04/03/23 - 04/10/23 [facility] [address] [facility] [address] [facility], [address] [place] [address]- Attending Physician: Jarret SENA, Mellisa Mcclendon Admitting [...] Given 1Result Comment: [facility]-[id number] 2Result Comment: [04/01/2018] [facility] [id number] 3Result Comment: [11/23/2013] Received at work 4Result Comment: influenza lot [id number] exp 10-04-2020 [facility] pharmacy Medications Mirena 52 mg intrauteral device 1 each = 52 mg, Once, 0 Refills, Maintenance, 05/09/15 8:35:25 Start Date: 05/09/15 Status: Ordered spironolactone 50 mg oral tablet 1 tablet, By Mouth, 2 times a day, # 180 tablet, 0 Refills, Maintenance, 03/03/23 12:23:00 EST, [facility]/pharmacy #[id number], 165.1, cm, 02/10/23 11:00:00 EST, [...] Exam Date Time Procedure Performing Provider Status 04/03/23 10:21 AM MM Digital Mammo Screening Keli , Ap ril; Auth (Verified) Notes: (MM Digital Mammo Screening) Reason For Exam: SCREENING RESULT: MM Digital Mammo Screening PROCEDURE: MM Digital Mammo Screening INDICATION: Screening for breast cancer. No known palpable abnormalities. COMPARISON: Multiple priors dating back to 05/27/2012 TECHNIQUE: Full-field digital CC and MLO 3D tomosynthesis images of both breasts were acquired. Computer-aided detection (CAD) was utilized in the interpretation of this study. DENSITY: The breast tissue contains scattered areas of fibroglandular density. FINDINGS: There is a single view of the LEFT CC view at middle depth is within the line of the nipple. No definite corresponding finding is seen on the MLO view. Further evaluation with spot compression CC and full-field mediolateral tomosynthesis is recommended. Ultrasound may be necessary. No suspicious findings are seen in the right breast. IMPRESSION: Additional imaging recommended. We will recall the patient. RECOMMENDATION: Diagnostic 3D tomosynthesis of the left breast with scheduled ultrasound BI-RADS: 0 Incomplete - Need Additional Imaging Evaluation. Lay letter mailed to patient WSN: [id number] Ordering Physician: Mellisa Wheat Dictated By: Caprice Hernandez MD Dictated Date/Time: 04/03/23 12:57 pm Reviewed By: Caprice Hernandez MD Signed By: Caprice Hernandez MD Signed Date/Time: 04/03/23 12:57 pm Transcribed By: ELINA Joy Loader Date/Time: 04/03/23 12:49 pm Birads: Social History Social History Type Response Smoking Status Never smoker entered on: 11/20/15 Sex Patient Care team information Care Team Personnel Name: Mellisa Wheat NP Position: S PCO Associate Professional Member Role: PCP Address: Address: [address] [place] [address]- Care Team Related Persons Name: ROCIO MESSER Address: home [address] [place] [address]
--- OUTSIDE RECORDS SUMMARY | 2024-01-18 19:06 | XMS_ITS | Continuity of Care Document ---
Author Organization [facility] Chapo lt Address [address] [place] [address]- Care Team Providers Care Sculpture Instructor Name Role Phone Jarret SENA, Mellisa Mcclendon Primary Care Physician Encounter [facility] Date(s): 10/31/22 - 11/30/22 [facility] Adult [address] [place] [address]- Allergies, Adverse Reactions, Alerts Substance Reaction Severity [...] toxoids (Td) 10/14/05 Given 1Result Comment: [facility]-[id number] 2Result Comment: [04/01/2018] [facility] [id number] 3Result Comment: [11/23/2013] Received at work 4Result Comment: influenza lot [id number] exp 10-04-2020 [facility] Medications Mirena 52 mg intrauteral device 1 each = 52 mg, Once, 0 Refills, Maintenance, 05/09/15 8:35:25 Start Date: 05/09/15 Status: Ordered predniSONE 20 mg oral tablet 2 tablet = 40 mg, By Mouth, Daily, # 6 tablet, 0 Refills, Maintenance, 09/22/22 15:17:00 EDT, [facility]/pharmacy #[id number], Partial fill upon patient request if the prescription is for a schedule II opioid drug., 165.1, cm, 09/18/22 10:32:00 EDT, Height Start Date: 09/22/22 Status: Ordered spironolactone 50 mg oral tablet 1 tablet, By Mouth, 2 times a day, LABS REQUIRED FOR FURTHER REFILLS., # 180 tablet, 0 Refills, Maintenance, 11/01/22 9:33:00 EDT, [facility], 165.1, cm, 09/18/22 10:32:00 EDT,Height Start [...] Associate Professional Member Role: PCP Address: Address: [address] [place] [address]- Care Team Related Persons Name: ROCIO MESSER Address: home [address] [place] [address]
--- OUTSIDE RECORDS SUMMARY | 2024-01-18 19:06 | XMS_ITS | Continuity of Care Document ---
Author Organization [facility] Keegan Chapo lt Address [address] [place] [address]- Care Team Providers Care Environmental Conflict Manager Name Role Phone Jarret SENA, Mellisa Mcclendon Primary Care Physician [place] [facility] Date(s): 04/06/19 - 04/16/19 [facility] [place] Adult [address] [place] [address]- [facility] Attending Physician: Admtr, Jennifer Admitting Physician: Admtr, Jennifer Referring Physician: Admtr, Ar8 Allergies, Adverse Reactions, [...] tetanus-diphtheria toxoids (Td) 10/14/05 Given 1Result Comment: [facility]-[id number] 2Result Comment: [04/01/2018] [facility] [id number] 3Result Comment: [11/23/2013] Received at work Medications [...]
--- OUTSIDE RECORDS SUMMARY | 2024-01-18 19:06 | XMS_ITS | Continuity of Care Document ---
Author Organization [facility] Keegan Chapo lt Address [address] [place] [address]- Care Team Providers Care Forge Operator Helper Name Role Phone Jarret SENA, Mellisa Mcclendon Primary Care Physician Encounter [facility] Date(s): 02/12/23 - 03/14/23 [facility] Adult [address] [place] [address]- Allergies, Adverse Reactions, Alerts Substance Reaction Severity [...] tetanus-diphtheria toxoids (Td) 10/14/05 Given 1Result Comment: [facility]-[id number] 2Result Comment: [04/01/2018] [facility] [id number] 3Result Comment: [11/23/2013] Received at work 4Result Comment: influenza lot [id number] exp 10-04-2020 [facility] pharmacy Medications Medrol Dosepak 4 mg oral tablet 1 pack/packet, By Mouth, Daily, for 6 days, as directed on package labeling, # 21 tablet, 5 Refills, Acute 03/18/23 11:43:00 EST, 02/10/23 11:43:00 EST, Tablet, [facility]/pharmacy #[id number], Partial fill upon patient request if [...] tablet, 0 Refills, Maintenance, 03/03/23 12:23:00 EST, [facility]/pharmacy #[id number], 165.1, cm, 02/10/23 11:00:00 EST, Height [...] Associate Professional Member Role: PCP Address: Address: [address] [place] [address]- Care Team Related Persons Name: ROCIO MESSER Address: home [address] [place] [address]
--- OUTSIDE RECORDS SUMMARY | 2024-01-18 19:06 | XMS_ITS | Continuity of Care Document ---
Author Organization [facility] Address [address] [place] [address]- Care Team Providers Care Subcontract Administrator Name Role Phone Jarret SENA, Mellisa Mcclendon Primary Care Physician [phone] Encounter [facility] Date(s): 10/31/22 - 11/30/[address] [address] Attending Physician: Admtr, Ar8 Admitting Physician: Admtr, [...] tetanus-diphtheria toxoids (Td) 10/14/05 Given 1Result Comment: [facility]NOTE 3]-[id number] 2Result Comment: [04/01/2018] [facility] [id number] 3Result Comment: [11/23/2013] Received at work 4Result Comment: influenza lot [id number] exp 10-04-2020 [facility] pharmacy Medications Mirena 52 mg intrauteral device 1 each = 52 mg, Once, 0 Refills, Maintenance, 05/09/15 8:35:25 Start Date: 05/09/15 Status: Ordered predniSONE 20 mg oral tablet 2 tablet = 40 mg, By Mouth, Daily, # 6 tablet, 0 Refills, Maintenance, 09/22/22 15:17:00 EDT, [facility]/pharmacy #[id number], Partial fill upon patient request if the prescription is for a schedule II opioid drug., 165.1, cm, 09/18/22 10:32:00 EDT, Height Start Date: 09/22/22 Status: Ordered spironolactone 50 mg oral tablet 1 tablet, By Mouth, 2 times a day, LABS REQUIRED FOR FURTHER REFILLS., # 180 tablet, 0 Refills, Maintenance, 11/01/22 9:33:00 EDT, [facility], 165.1, cm, 09/18/22 10:32:00 EDT,Height Start [...] Personnel Name: Jarret SENA, Mellisa Mcclendon Position: [facility] PCO Associate Professional Member Role: PCP Address: Address: [address] [place] [address]- Care Team Related Persons Name: ROCIO MESSER Address: home [address] [place] [address]
--- OUTSIDE RECORDS SUMMARY | 2024-01-18 19:06 | XMS_ITS | Continuity of Care Document ---
Author Organization [facility] Keegan Chapo lt Address [address] [place] [address]- Care Team Providers Care Mobile Home Park Manager Name Role Phone Jarret SENA, Mellisa Mcclendon Primary Care Physician Encounter [facility] Date(s): 02/10/23 - 02/17/23 [facility] Adult [address] [place] [address]- Encounter Diagnosis Dry cough(Discharge Diagnosis) - 02/10/23 Otitis media(Discharge Diagnosis) - 02/10/23 Attending Physician: Mellisa Wheat NP Allergies, Adverse [...] 10/14/05 Given 1Result Comment: [facility]-[id number] 2Result Comment: [04/01/2018] [facility] [id number] 3Result Comment: [11/23/2013] Received at work 4Result Comment: influenza lot [id number] exp 10-04-2020 [facility] pharmacy Medications Augmentin 875 mg-125 mg oral tablet 1 tablet, By Mouth, Every 12 hours, for 10 days, # 20 tablet, 0 Refills, Acute 02/20/23 11:43:00 EST, 02/10/23 11:43:00 EST, [facility]/pharmacy #[id number], Partial fill upon patient request if the prescription is for a schedule II opioid drug., 165.1, cm, ... Start Date: 02/10/23 Stop Date: 02/20/23 Status: Ordered Medrol Dosepak 4 mg oral tablet 1 pack/packet, By Mouth, Daily, for 6 days, as directed on package labeling, # 21 tablet, 5 Refills, Acute 03/18/23 11:43:00 EST, 02/10/23 11:43:00 EST, Tablet, [facility]/pharmacy #[id number], Partial fill upon patient request [...] tablet, 0 Refills, Maintenance, 11/01/22 9:33:00 EDT, [facility], 165.1, cm, 09/18/22 10:32:00 EDT,Height Start [...] Dates Health Status Cl inical Service Informant Dry cough Discharge Diagnosis 02/10/23 Otitis media Discharge Diagnosis 02/10/23 Vital Signs Most recent to oldest [Reference Range]: 1 Height 165.10 cm (02/10/23 11:00 AM) Weight 73.5 kg (02/10/23 11:00 AM) Oxygen Saturation [94-100 %] 97 % (02/10/23 11:00 AM) Pulse Rate [55-90 bpm] 78 bpm (02/10/23 11:00 AM) Body Mass Index [18.5-24.99 kg/m2] 26.96 kg/m2 *H* (02/10/23 11:00 AM) Blood Pressure [90-138/55-84 mm Hg] 113/ 82mm Hg (02/10/23 11:00 AM) Temperature [96.8-100.4 DegF] 97.9 DegF (02/10/23 11:00 AM) Temperature Route Oral (02/10/23 11:00 AM) Weight Obtained Via Standing scale (02/10/23 11:00 AM) Social History Social History Type Response Smoking Status Never smoker entered on: 11/20/15 Sex Note * Caprice Patrick: PERFORM, SIGN, VERIFY Event Display: Patient Education/Instruction Authored Date: [id number] [facility] *RACIEL Gauthier Clinical Summary Name MARIE NG Age 52 Years 1970 PCP Jarret SENA, Mellisa Mcclendon PCP Visit Date 02/10/2023 10:59:00 Additional Instructions: Scheduled Appointments?? Future Appointments ?No Future Appointments Scheduled Follow-Up Instructions ?? Diagnosis Medications: Please continue your medications until treatment is completed or stopped by your provider. Discuss any questions related to medications with your provider. New Medications [facility]/pharmacy #[id number], [address] [place] [id number], [phone] Amoxicillin-Clavulanate (Augmentin 875 mg-125 mg oral tablet) 1 tab(s) Oral every 12 hours for 10 Days. Refills: 0. Next Dose: MethylPREDNISolone (Medrol Dosepak 4 mg oral tablet) 1 pack/packet Oral Daily for 6 Days. as directed on package labeling. Refills: 5. Next Dose: Medications to Continue with No [...] day. LABS REQUIRED FOR FURTHER REFILLS.. Refills: 0. Next Dose: No Longer Take the Following Medications PredniSONE (predniSONE 20 mg oral tablet) 2 tab(s) Oral Daily. Refills: 0. Allergy Info:?? Macrobid Medications Given This Visit Future Orders ?Comprehensive Metabolic Panel? Order Date:02/10/23?- Complete on or after?02/10/23 Vital Signs Height 165.10 cm Weight 73.5 kg BMI 26.96 kg/m2 Blood Pressure 113 mm Hg/82 mm Hg Temperature 97.9 DegF Pulse Rate 78 bpm Respiratory Rate 02 Sat Mode of Delivery 97 %/ You can now view a summary of your hospital visit from the comfort of your home through a free online portal called [employer]. [employer] is a website that allows you to securely view your medical information including discharge summary, medications and follow-up visits. ??You can alsosend a secure electronic message to your doctor???s office to request appointments, renew medications or just ask a question. You can enroll at [email or web address] or register during your next office visit. [...] primary care provider, you may find a [facility] provider by calling [facility] [employer] Link at [phone]. [facility], in keeping with [facility] guidance, no longer requires face masks for staff, patientsor visitors in most situations. Similar to time spent indoors at other locations, there is the chance that you were exposed to respiratory viruses during your time with us (such as flu or COVID-19).? If you develop symptoms concerning for a viral respiratory infection, please seek testing (and treatment if indicated) from your medical provider or home test kit. For information about the plan of care [...] Personnel Name: Jarret SENA, Mellisa Mcclendon Position: [facility] PCO Associate Professional Member Role: PCP Address: Address: [address] [place] [address]- [place] Care Team Related Persons Name: ROCIO MESSER Address: home [address] [place] [address]
--- OUTSIDE RECORDS SUMMARY | 2024-01-18 19:06 | XMS_ITS | Continuity of Care Document ---
Author Organization [facility] Asim Allison Chapo lt Address [address] [place] [address]- Care Team Providers Care Demand Planning Manager Name Role Phone Jarret SENA, Mellisa Mcclendon Primary Care Physician Encounter [facility] Date(s): 03/14/23 - 04/13/23 [facility] Adult [address] [place] [address]- Allergies, Adverse Reactions, Alerts Substance Reaction Severity [...] toxoids (Td) 10/14/05 Given 1Result Comment: [facility][NOTE 2]-[id number] 2Result Comment: [04/01/2018] [facility] [id number] 3Result Comment: [11/23/2013] Received at work 4Result Comment: influenza lot [id number] exp 10-04-2020 [facility] pharmacy Medications Mirena 52 [...] Personnel Name: Jarret SENA, Mellisa Mcclendon Position: [facility] PCO Associate Professional Member Role: PCP Address: Address: [address] [place] [address]- Care Team Related Persons Name: ROCIO MESSER Address: home [address] [place] [address]
[2024-01-18 19:14] LABS: Influenza A PCR NEGATIVE (Negative); Influenza B PCR NEGATIVE (Negative); Resp Syncy Virus RNA Qual PCR NEGATIVE (Negative); SARS COV2 PCR INHOUSE POSITIVE (Negative)
[2024-01-18 21:48] VITALS: BP 128/78; PULSE 104; RESP 20; TEMP 37.1; O2SAT 97
[2024-01-18 22:09] VITALS: O2SAT 95
[2024-01-18 22:55] VITALS: BP 119/79; PULSE 92; RESP 20; TEMP 37.2; O2SAT 97
[2024-01-18 23:05] VITALS: BP 119/79; PULSE 92; RESP 20; TEMP 37.2; O2SAT 97
== END 2024-01-18 23:07 | disposition home or self-care (01) ==
PROVIDERS: Emergency Provider Emergency Medicine; PCP Nurse Practitioner Family
DX: U07.1 COVID-19 (principal); R05.9 Cough, unspecified; R07.0 Pain in throat; R51.9 Headache, unspecified; M79.10 Myalgia, unspecified site; Z79.899 Other long term (current) drug therapy
CPT/HCPCS: 0241U; 71046; 87651; 99284